=== PATIENT | male | born 1975 | race Caucasian/White ===

== ENCOUNTER 2021-03-23 22:15 | Emergency (ER) | payer SELFPAY ==
[2021-03-23 23:35] LABS: Protime INR 0.94
[2021-03-23 23:54] LABS: ALT/SGPT 27 U/L (12-78); AST/SGOT 20 U/L (15-37); Alkaline Phosphatase 99 U/L (45-117); BUN Blood Urea Nitrogen 12 mg/dL (7-18); Bicarbonate 29 mmol/L (21-32); Bilirubin Direct 0.1 mg/dL (0-0.2); Bilirubin Total 0.3 mg/dL (0.2-1.0); CKMB Creatine Kinase MB 3.7 ng/mL (1.0-3.6); Creatine Phosphokinase 232 U/L (39-308); Glucose Level 118 mg/dL (74-106); Lipase 240 U/L (73-393); Magnesium 2.5 mg/dL (1.8-2.4); Potassium 3.7 mmol/L (3.5-5.1); Sodium Level 139 mmol/L (136-145); Troponin (Emerg Dept Use Only) < 0.02 ng/mL (0.0-0.045)
[2021-03-23 23:55] LABS: Absolute Lymphocytes (CBC) 1.5 K/uL (0.7-4.9); Basophils % 0.3 % (0-1.3); Hematocrit 46.3 % (39.6-49.0); Lymphocytes % 10.5 % (15.3-44.8); RBC Red Blood Cell Count 4.61 M/uL (4.33-5.43)
--- NOTE | 2021-03-24 01:37 | ER ---
Nurse's Notes [facility] Name: Ravindra Nicholson Age: 45 yrs Sex: Male : 1975 Arrival Date: 03/23/2021 Time: 22:31 Bed 7 Private MD: Diagnosis: Other hypoglycemia Presentation: 03/23 22:32 Chief complaint: Patient states: BIBA. Pt was at work and had syncope episode, EMT on bc5 work said "blood sugar was low" Per EMS Pt was given oral glucose and was awake and alert when EMS arrived on scene and dexi in rout was 120. Pt A\\T\\O x 3, RR is even and unlabored, speaking in clear and complete sentences at this time. blood sugar here was 52 and was given juice and sandwich. Coronavirus screen: Vaccine status: Patient reports receiving the 2nd dose of the covid vaccine. Ebola Screen: Patient negative for fever greater than or equal to 101.5 degrees Fahrenheit, and additional compatible Ebola Virus Disease symptoms Patient denies exposure to infectious person. Patient denies travel to an Ebola-affected area in the 21 days before illness onset. No symptoms or risks identified at this time. Initial Sepsis Screen: Does the patient meet any 2 criteria? No. Patient's initial sepsis screen is negative. Does the patient have a suspected source of infection? No. Patient's initial sepsis screen is negative. Risk Assessment: Do you want to hurt yourself or someone else? Patient reports no desire to harm self or others. Onset of symptoms was March 23, 2021. 22:32 Method Of Arrival: EMS: [facility] 22:32 Acuity: JOEY 3 bc5 Triage Assessment: 22:39 General: Appears comfortable, Behavior is calm. Pain: Denies pain. bc5 Historical: - Allergies: 22:38 PENICILLINS; bc5 - PMHx: 22:38 Diabetes mellitus; bc5 - Immunization history:: Adult Immunizations not up to date, . - Social history:: Smoking status: Patient reports the use of cigarette tobacco products, smokes one pack cigarettes per day. - Family history:: not pertinent. Screenin:39 Abuse screen: Denies threats or abuse. Denies injuries from another. Nutritional bc5 screening: No deficits noted. Tuberculosis screening: No symptoms or risk factors identified. Fall Risk No fall in past 12 months (0 pts). No secondary diagnosis (0 pts). IV access (20 points). Ambulatory Aid- None/Bed Rest/Nurse Assist (0 pts). Gait- Normal/Bed Rest/Wheelchair (0 pts) Mental Status- Oriented to own ability (0 pts). Total Colón Fall Scale indicates No Risk (0-24 pts). Assessment: 22:46 Neuro: No deficits noted. Cardiovascular: No deficits noted. Respiratory: No deficits bc5 noted. GI: No deficits noted. : No deficits noted. EENT: No deficits noted. Derm: No deficits noted. Musculoskeletal: No deficits noted. Vital Signs: 22:32 BP 133 / 82; Pulse 80; Resp 15; Temp 97.9(O); Pulse Ox 100% on R/A; Weight 74.84 kg bc5 (R); Height 5 ft. 8 in. (172.72 cm) (R); Pain 0/10; 23:20 BP 129 / 70; Pulse 71; Resp 17; Pulse Ox 99% on R/A; Pain 0/10; bc5 03/24 01:07 BP 131 / 96; Pulse 54; Resp 15; Temp 97.9(O); Pulse Ox 100% on R/A; Pain 0/10; bc5 01:41 BP 118 / 58; Pulse 65; Resp 15; Temp 98(O); Pulse Ox 98% on R/A; Pain 0/10; bc5 03/23 22:32 Body Mass Index 25.09 (74.84 kg, 172.72 cm) 5 ED Course: 03/23 22:31 Patient arrived in ED. bc5 22:32 Princess Suárez, MEGAN is Primary Nurse. bc5 22:32 Xochilt Montes De Oca MD is Attending Physician. ma2 22:38 Triage completed. bc5 22:39 Patient has correct armband on for positive identification. Placed in gown. Bed in low bc5 position. Call light in reach. Side rails up X2. Adult w/ patient. 22:39 No provider procedures requiring assistance completed. bc5 22:40 Arm band placed on. bc5 22:52 Glucose, Ancillary Testing Sent. bc5 22:53 Inserted saline lock: 22 gauge in left antecubital area, using aseptic technique. 5 03/24 01:43 IV discontinued, intact, bleeding controlled, No redness/swelling at site. Pressure bc5 dressing applied. Administered Medications: 03/23 22:54 Not Given (Other Intervention Used): NS 0.9% 1000 ml IV at 1 bolus Per protocol; 1000 bc5 mL bolus Outcome: 03/24 01:36 Discharge ordered by . [email or web address] 01:41 Condition: stable bc5 01:52 Discharged to home ambulatory, with friend. bc5 01:52 Discharge instructions given to patient, friend, Instructed on discharge instructions, follow up and referral plans. medication usage, Prescriptions given X 1. 01:53 Patient left the ED. bc5 Signatures: Xochilt Montes De Oca MD MD ma2 Princess Suárez, RN RN bc5 Corrections: (The following items were deleted from the chart) 03/23 22:53 22:38 Social history: Smoking status: Patient denies any tobacco usage or history of. bc5 bc5
--- NOTE | 2021-03-24 01:37 | EDPHYS ---
Physician Documentation [facility] Name: Ravindra Nicholson Age: 45 yrs Sex: Male : 1975 Arrival Date: 03/23/2021 Time: 22:31 Bed 7 Private MD: ED Physician Xochilt Montes De Oca HPI: 03/23 23:03 This 45 yrs old Male presents to ER via EMS with complaints of Low Blood Sugar. ma2 23:03 Onset: The symptoms/episode began/occurred suddenly, 1 hour(s) ago. Associated signs ma2 and symptoms: Pertinent negatives: diarrhea, ketones in urine, polydipsia. Current symptoms: In the emergency department the patient's symptoms have resolved. The patient has experienced a previous episode. Patient takes insulin patient takes insulin, does not take oral hypoglycemic, he thinks he could have taken his insulin dose twice this morning. All symptoms resolved now no symptoms at this time.. Historical: - Allergies: 22:38 PENICILLINS; bc5 - PMHx: 22:38 Diabetes mellitus; bc5 - Immunization history:: Adult Immunizations not up to date, . - Social history:: Smoking status: Patient reports the use of cigarette tobacco products, smokes one pack cigarettes per day. - Family history:: not pertinent. ROS: 23:03 Constitutional: Negative for fever, chills, and weight loss. ma2 23:03 All other systems are negative. Exam: 23:03 Constitutional: This is a well developed, well nourished patient who is awake, alert, ma2 and in no acute distress. Head/Face: Normocephalic, atraumatic. Eyes: Pupils equal round and reactive to light, extra-ocular motions intact. Lids and lashes normal. Conjunctiva and sclera are non-icteric and not injected. Cornea within normal limits. Periorbital areas with no swelling, redness, or edema. ENT: Nares patent. No nasal discharge, no septal abnormalities noted. Tympanic membranes are normal and external auditory canals are clear. Oropharynx with no redness, swelling, or masses, exudates, or evidence of obstruction, uvula midline. Mucous membranes moist. Neck: Trachea midline, no thyromegaly or masses palpated, and no cervical lymphadenopathy. Supple, full range of motion without nuchal rigidity, or vertebral point tenderness. No Meningismus. Chest/axilla: Normal chest wall appearance and motion. Nontender with no deformity. No lesions are appreciated. Cardiovascular: Regular rate and rhythm with a normal S1 and S2. No gallops, murmurs, or rubs. Normal PMI, no JVD. No pulse deficits. Respiratory: Lungs have equal breath sounds bilaterally, clear to auscultation and percussion. No rales, rhonchi or wheezes noted. No increased work of breathing, no retractions or nasal flaring. Abdomen/GI: Soft, non-tender, with normal bowel sounds. No distension or tympany. No guarding or rebound. No evidence of tenderness throughout. Skin: Warm, dry with normal turgor. Normal color with no rashes, no lesions, and no evidence of cellulitis. MS/ Extremity: Pulses equal, no cyanosis. Neurovascular intact. Full, normal range of motion. Neuro: Awake and alert, GCS 15, oriented to person, place, time, and situation. Cranial nerves II-XII grossly intact. Motor strength 5/5 in all extremities. Sensory grossly intact. Cerebellar exam normal. Normal gait. Vital Signs: 22:32 BP 133 / 82; Pulse 80; Resp 15; Temp 97.9(O); Pulse Ox 100% on R/A; Weight 74.84 kg 5 (R); Height 5 ft. 8 in. (172.72 cm) (R); Pain 0/10; 23:20 BP 129 / 70; Pulse 71; Resp 17; Pulse Ox 99% on R/A; Pain 0/10; bc5 03/24 01:07 BP 131 / 96; Pulse 54; Resp 15; Temp 97.9(O); Pulse Ox 100% on R/A; Pain 0/10; bc5 01:41 BP 118 / 58; Pulse 65; Resp 15; Temp 98(O); Pulse Ox 98% on R/A; Pain 0/10; bc5 03/23 22:32 Body Mass Index 25.09 (74.84 kg, 172.72 cm) 5 MDM: 03/23 22:32 Patient medically screened. ma2 23:03 Differential diagnosis: diabetes insipidus, DKA, hyperglycemia, hypoglycemic episode. ma2 Data reviewed: vital signs, nurses notes, EMS record. 03/24 01:35 Counseling: I had a detailed discussion with the patient and/or guardian regarding: the wy2 historical points, exam findings, and any diagnostic results supporting the discharge/admit diagnosis, the presence of at least one elevated blood pressure reading (>120/80) during this emergency department visit, the need for outpatient follow up. Response to treatment: the patient's symptoms have markedly improved after treatment. 03/23 22:32 Order name: Basic Metabolic Panel wy2 03/23 22:32 Order name: CBC with Diff wy2 03/23 22:32 Order name: CPK wy2 03/23 22:32 Order name: Ckmb wy2 03/23 22:32 Order name: Hepatic Function wy2 03/23 22:32 Order name: Lipase; Complete Time: 00:23 ma2 03/23 22:32 Order name: Magnesium; Complete Time: 00:22 ma2 03/23 22:32 Order name: Protime (+inr); Complete Time: 00:23 ma2 03/23 22:32 Order name: Ptt, Activated; Complete Time: 00:23 ma2 03/23 22:32 Order name: Troponin (emerg Dept Use Only); Complete Time: 00:23 ma2 03/23 22:35 Order name: Basic Metabolic Panel; Complete Time: 00:22 EDMS 03/23 22:35 Order name: CBC with Automated Diff; Complete Time: 00:22 EDMS 03/23 22:35 Order name: Creatine Phosphokinase; Complete Time: 00:23 EDMS 03/23 22:35 Order name: CKMB Creatine Kinase MB; Complete Time: 00:22 EDMS 03/23 22:32 Order name: EKG; Complete Time: 22:35 ma2 03/23 22:32 Order name: Cardiac monitoring; Complete Time: 22:52 ma2 03/23 22:32 Order name: EKG - Nurse/Tech; Complete Time: 22:52 ma2 03/23 22:32 Order name: IV Saline Lock; Complete Time: 22:53 ma2 03/23 22:32 Order name: Labs collected and sent; Complete Time: 22:53 ma2 03/23 22:32 Order name: O2 Per Protocol; Complete Time: 22:52 ma2 03/23 22:32 Order name: O2 Sat Monitoring; Complete Time: 22:52 ma2 03/23 22:32 Order name: Urine Dipstick-Ancillary (obtain specimen) ma2 03/23 22:35 Order name: Liver (Hepatic) Function; Complete Time: 00:23 EDMS 03/23 22:36 Order name: Glucose, Ancillary Testing; Complete Time: 00:23 EDMS 03/23 22:36 Order name: Glucose, Ancillary Testing EDMS 03/23 23:02 Order name: Glucose, Ancillary Testing EDMS 03/23 23:30 Order name: Glucose, Ancillary Testing; Complete Time: 00:23 EDMS Administered Medications: 03/23 22:54 Not Given (Other Intervention Used): NS 0.9% 1000 ml IV at 1 bolus Per protocol; 1000 bc5 mL bolus Disposition Summary: 03/24/21 01:36 Discharge Ordered Location: Home ma2 Condition: Stable ma2 Diagnosis - Other hypoglycemia ma2 Followup: ma2 - With: Private Physician - When: Tomorrow - Reason: Continuance of care Discharge Instructions: - Discharge Summary Sheet ma2 - Hypoglycemia ma2 - Hypoglycemia, [id number] ma2 - Preventing Hypoglycemia ma2 Forms: - Medication Reconciliation Form ma2 - Thank You Letter ma2 - Antibiotic Education ma2 - Prescription Opioid Use ma2 Prescriptions: - GlucaGen HypoKit 1 mg Injection recon soln - inject 1 milliliter by INTRAMUSCULAR route as directed in thigh, upper arm, or ma2 buttocks; 3 Cartridge; Refills: 0, Product Selection Permitted Signatures: Dispatcher [employer] EDMS Xochilt Montes De Oca MD MD ma2 Princess Suárez RN RN bc5 Corrections: (The following items were deleted from the chart) 22:53 22:38 Social history: Smoking status: Patient denies any tobacco usage or history of. bc5 bc5
[2021-03-24 02:24] VITALS: BP 118/58; TEMP 98; O2SAT 98
== END 2021-03-24 01:53 | disposition home or self-care (01) ==
LOC: ER 22:15
DX: E13.649 Other specified diabetes mellitus with hypoglycemia without coma (principal); F17.210 Nicotine dependence, cigarettes, uncomplicated; Z79.4 Long term (current) use of insulin; Z88.0 Allergy status to penicillin
CPT/HCPCS: 36415; 80048; 80076; 82550; 82553; 82947; 83690; 83735; 84484; 85025; 85610; 85730; 93005; 99284